=== PATIENT | male | born 1955 | race Caucasian/White ===

== ENCOUNTER 2018-01-13 07:53 | Emergency (ER) | payer BC ==
[2018-01-13] MEDS ORDERED: SODIUM CHLORIDE 0.9% 500 ML 500 ML IV STA (08:19)
[2018-01-13] MEDS ORDERED: DIAZEPAM 5 MG/ML 2 ML INJ IVP STA (08:20)
[2018-01-13] MEDS ORDERED: MECLIZINE 25 MG TAB PO STA (08:20)
--- NOTE | 2018-01-13 08:24 | ED ---
General Adult HPI - General Chief complaint: Weakness Stated complaint: Dizziness Time Seen by Provider: 01/13/18 07:55 Source: patient, RN notes reviewed Mode of arrival: ambulatory Limitations: no limitations - History of Present Illness Initial comments: This is a 62-year-old male who presents emergency Department complaining of waking up at 1:00 in the morning with dizziness. Patient states she got up and he felt off balance when he was walking to the bathroom. Patient states when he woke up this morning again he continued to have the same symptoms. Patient denies any nausea or vomiting. Patient denies any headache patient denies any numbness or focal weakness. Patient states she was able to coordinate everything he just felt off balance. Patient denied any near syncopal or syncopal episode. Patient denies any chest pain difficulty breathing shortness breath per patient but any abdominal pain. Patient denied any back pain. Patient denied any other problems at this time. Patient states he had no recent fever chills. Patient states he does have high blood pressure high cholesterol and a daily drinker. - Related Data Home Medications Medication Instructions Recorded Confirmed Atorvastatin [Lipitor] 40 mg PO DAILY 01/23/16 01/13/18 Mometasone/Formoterol [Dulera 200 2 puff INHALATION RT-BID 01/23/16 01/13/18 Mcg/5 Mcg Inhaler] Verapamil HCl [Verelan] 360 mg PO DAILY 01/23/16 01/13/18 Azithromycin 250 mg PO DAILY 01/13/18 01/13/18 Dicyclomine [Bentyl] 20 mg PO TID 01/13/18 01/13/18 Previous Rx's Medication Instructions Recorded Meclizine [Antivert] 25 mg PO TID #20 tab 01/13/18 Allergies Allergy/AdvReac Type Severity Reaction Status Date / Time No Known Allergies Allergy Verified 01/13/18 09:19 Review of Systems ROS Statement: Those systems with pertinent positive or pertinent negative responses have been documented in the HPI. ROS Other: All systems not noted in ROS Statement are negative. Past Medical History Past Medical History: Asthma, Cancer, Hypertension, Skin Disorder Additional Past Medical History / Comment(s): HX OF PROSTATE CANCER., SKIN TX BY DERMATOLIGIST History of Any Multi-Drug Resistant Organisms: None Reported Past Surgical History: Prostate Surgery Past Anesthesia/Blood Transfusion Reactions: No Reported Reaction Past Psychological History: Depression Smoking Status: Former smoker Past Alcohol Use History: Daily Past Drug Use History: None Reported - Past Family History Mother Family Medical History: No Reported History General Exam - General Exam Comments Initial Comments: GENERAL: Patient is well-developed and well-nourished. Patient is nontoxic and well- hydrated and is in mild distress. ENT: Neck is soft and supple. No significant lymphadenopathy is noted. Oropharynx is clear. Moist mucous membranes. Neck has full range of motion without eliciting any pain. EYES: The sclera were anicteric and conjunctiva were pink and moist. Extraocular movements were intact and pupils were equal round and reactive to light. Eyelids were unremarkable. PULMONARY: Unlabored respirations. Good breath sounds bilaterally. No audible rales rhonchi or wheezing was noted. CARDIOVASCULAR: There is a regular rate and rhythm without any murmurs gallops or rubs. ABDOMEN: Soft and nontender with normal bowel sounds. No palpable organomegaly was noted. There is no palpable pulsatile mass. SKIN: Skin is clear with no lesions or rashes and otherwise unremarkable. NEUROLOGIC: Patient is alert and oriented x3. Cranial nerves II through XII are grossly intact. Motor and sensory are also intact. Normal speech, volume and content. Symmetrical smile. Cerebellar exam grossly intact. When I sat the patient up in bed he stated that made his dizziness worse. MUSCULOSKELETAL: Normal extremities with adequate strength and full range of motion. No lower extremity swelling or edema. No calf tenderness. LYMPHATICS: No significant lymphadenopathy is noted PSYCHIATRIC: Normal psychiatric evaluation. Limitations: no limitations Course Vital Signs 01/13/18 01/13/18 07:54 09:17 Temperature 98.1 F 98.2 F Pulse Rate 93 78 Respiratory 20 18 Rate Blood Pressure 155/91 140/92 O2 Sat by Pulse 99 96 Oximetry Medical Decision Making - Medical Decision Making EKG shows sinus rhythm with occasional PVC at 80 bpm NH interval is 154 QRS is 98 QT interval 410 QTC is 472 per patient's EKG shows no ST segment elevation CT of the brain shows no acute abnormality. Chest x-ray shows no acute abnormality. Patient states the vertigo is improved but it had not completely resolved. Patient was able to ambulate without falling over patient was not nauseated. Patient denies any headache patient denies any numbness or weakness at this time and he felt comfortable going home I we'll discharge patient home on some Antivert. - Lab Data Result diagrams: 01/13/18 08:22 01/13/18 08:20 Lab Results 01/13/18 01/13/18 01/13/18 Range/Units 08:20 08:22 08:22 WBC 7.7 (3.8-10.6) k/uL RBC 4.48 (4.30-5.90) m/uL Hgb 15.5 (13.0-17.5) gm/dL Hct 46.0 (39.0-53.0) % MCV 102.8 H (80.0-100.0) fL MCH 34.6 (25.0-35.0) pg MCHC 33.6 (31.0-37.0) g/dL RDW 13.1 (11.5-15.5) % Plt Count 281 (150-450) k/uL Neutrophils % 75 % Lymphocytes % 15 % Monocytes % 5 % Eosinophils % 2 % Basophils % 0 % Neutrophils # 5.8 (1.3-7.7) k/uL Lymphocytes # 1.2 (1.0-4.8) k/uL Monocytes # 0.4 (0-1.0) k/uL Eosinophils # 0.2 (0-0.7) k/uL Basophils # 0.0 (0-0.2) k/uL Macrocytosis Slight PT 9.9 (9.0-12.0) sec INR 0.9 (<1.2) APTT 22.5 (22.0-30.0) sec Sodium 141 (137-145) mmol/L Potassium 4.1 (3.5-5.1) mmol/L Chloride 108 H (98-107) mmol/L Carbon Dioxide 24 (22-30) mmol/L Anion Gap 9 mmol/L BUN 12 (9-20) mg/dL Creatinine 0.85 (0.66-1.25) mg/dL Est GFR (CKD-EPI)AfAm >90 (>60 ml/min/1.73 sqM) Est GFR (CKD-EPI)NonAf >90 (>60 ml/min/1.73 sqM) Glucose 136 H (74-99) mg/dL Calcium 9.5 (8.4-10.2) mg/dL Magnesium 1.8 (1.6-2.3) mg/dL Total Bilirubin 0.9 (0.2-1.3) mg/dL AST 34 (17-59) U/L ALT 42 (21-72) U/L Alkaline Phosphatase 62 (38-126) U/L Total Creatine Kinase (55-170) U/L CK-MB (CK-2) (0.0-2.4) ng/mL CK-MB (CK-2) Rel Index Troponin I (0.000-0.034) ng/mL Total Protein 6.9 (6.3-8.2) g/dL Albumin 4.1 (3.5-5.0) g/dL Serum Alcohol <10 mg/dL 01/13/18 Range/Units 08:30 WBC (3.8-10.6) k/uL RBC (4.30-5.90) m/uL Hgb (13.0-17.5) gm/dL Hct (39.0-53.0) % MCV (80.0-100.0) fL MCH (25.0-35.0) pg MCHC (31.0-37.0) g/dL RDW (11.5-15.5) % Plt Count (150-450) k/uL Neutrophils % % Lymphocytes % % Monocytes % % Eosinophils % % Basophils % % Neutrophils # (1.3-7.7) k/uL Lymphocytes # (1.0-4.8) k/uL Monocytes # (0-1.0) k/uL Eosinophils # (0-0.7) k/uL Basophils # (0-0.2) k/uL Macrocytosis PT (9.0-12.0) sec INR (<1.2) APTT (22.0-30.0) sec Sodium (137-145) mmol/L Potassium (3.5-5.1) mmol/L Chloride (98-107) mmol/L Carbon Dioxide (22-30) mmol/L Anion Gap mmol/L BUN (9-20) mg/dL Creatinine (0.66-1.25) mg/dL Est GFR (CKD-EPI)AfAm (>60 ml/min/1.73 sqM) Est GFR (CKD-EPI)NonAf (>60 ml/min/1.73 sqM) Glucose (74-99) mg/dL Calcium (8.4-10.2) mg/dL Magnesium (1.6-2.3) mg/dL Total Bilirubin (0.2-1.3) mg/dL AST (17-59) U/L ALT (21-72) U/L Alkaline Phosphatase (38-126) U/L Total Creatine Kinase 97 (55-170) U/L CK-MB (CK-2) 1.3 (0.0-2.4) ng/mL CK-MB (CK-2) Rel Index 1.3 Troponin I <0.012 (0.000-0.034) ng/mL Total Protein (6.3-8.2) g/dL Albumin (3.5-5.0) g/dL Serum Alcohol mg/dL Disposition Clinical Impression: Vertigo Disposition: HOME SELF-CARE Condition: Good Instructions: Vertigo (ED) Prescriptions: Meclizine [Antivert] 25 mg PO TID #20 tab Is patient prescribed a controlled substance at d/c from ED?: No Referrals: Edgar Holley MD [Primary Care Provider] - 1-2 days Time of Disposition: 10:58
[2018-01-13 08:41] LABS: Basophils % (A) 0 %; Eosinophils # (A) 0.2 k/uL (0-0.7); Eosinophils % (A) 2 %; HGB 15.5 gm/dL (13.0-17.5); Lymphocytes # (A) 1.2 k/uL (1.0-4.8); Lymphocytes % (A) 15 %; MCH 34.6 pg (25.0-35.0); MCHC 33.6 g/dL (31.0-37.0); MCV 102.8 fL (80.0-100.0); Macrocytosis Slight; Mean Platelet Volume 6.5; Monocytes # (A) 0.4 k/uL (0-1.0); Monocytes % (A) 5 %; Neutrophils # (A) 5.8 k/uL (1.3-7.7); Neutrophils % (A) 75 %; Platelet Count 281 k/uL (150-450); RBC 4.48 m/uL (4.30-5.90); RDW 13.1 % (11.5-15.5); WBC 7.7 k/uL (3.8-10.6)
[2018-01-13 08:49] LABS: ALT 42 U/L (21-72); AST 34 U/L (17-59); Albumin 4.1 g/dL (3.5-5.0); Alcohol <10 mg/dL; Alkaline Phosphatase 62 U/L (38-126); Anion Gap 9 mmol/L; Blood Urea Nitrogen 12 mg/dL (9-20); Calcium 9.5 mg/dL (8.4-10.2); Carbon Dioxide 24 mmol/L (22-30); Chloride 108 mmol/L (98-107); Glucose 136 mg/dL (74-99); Magnesium 1.8 mg/dL (1.6-2.3); Potassium 4.1 mmol/L (3.5-5.1); Sodium 141 mmol/L (137-145); Total Bilirubin 0.9 mg/dL (0.2-1.3); Total Protein 6.9 g/dL (6.3-8.2)
--- NOTE | 2018-01-13 08:56 | XR ---
EXAMINATION TYPE: XR chest 2V DATE OF EXAM: 01/13/2018 COMPARISON: 11/08/2014 TECHNIQUE: PA and lateral views submitted. HISTORY: Chest pain FINDINGS: The lungs are clear and there is no pneumothorax, pleural effusion, or focal pneumonia. Subsegmenta l changes at the lung bases. There is biapical pleural thickening. No overt failure. Hypertrophic and degenerative change of the spine. IMPRESSION: 1. No acute process.
[2018-01-13 09:04] LABS: INR 0.9 (<1.2); Partial Thromboplastin Time 22.5 sec (22.0-30.0); Prothrombin Time 9.9 sec (9.0-12.0)
--- NOTE | 2018-01-13 09:10 | CT ---
EXAMINATION TYPE: CT brain wo con DATE OF EXAM: 01/13/2018 COMPARISON: None INDICATION: Dizziness and weakness DLP: 1099.4 mGycm, Automated exposure control for dose reduction was used. CONTRAST: None CT of the brain is performed utilizing 3 mm thick sections through the posterior fossa and 3 mm thick sections through the remaining calvarium. Study is performed within 24 hours of arrival to the hosp [facility]. No abnormal hyperdensity is present to suggest an acute intracranial hemorrhage. No mass lesion is evident. No acute infarcts are evident. Ventricles and sulci are appropriate for the patient age. Mucosal thickening is through the bilateral maxillary sinuses. There has been prior uncinectomies. La minectomies been performed. There is a retention cyst within a residual right ethmoid air cell. Left septal deviation is present. Galilea paranasal sinuses and mastoid air cells within the [id number] a re clear. IMPRESSIONS: 1. No acute intracranial process. 2. Mucosal thickening within the postsurgical sinuses discussed above.
[2018-01-13 09:18] VITALS: RESP 18; TEMP 98.2
[2018-01-13 09:20] LABS: Creatine Kinase 97 U/L (55-170)
[2018-01-13 09:32] LABS: Creatine Kinase MB 1.3 ng/mL (0.0-2.4); Troponin I <0.012 ng/mL (0.000-0.034)
[2018-01-13 11:38] VITALS: BP 160/88; PULSE 89
== END 2018-01-13 11:20 | disposition home or self-care (01) ==
LOC: EC 07:53
DX: R42 Dizziness and giddiness (principal); R53.1 Weakness; J45.909 Unspecified asthma, uncomplicated; I10 Essential (primary) hypertension; Z79.899 Other long term (current) drug therapy; Z85.46 Personal history of malignant neoplasm of prostate; Z87.891 Personal history of nicotine dependence
CPT/HCPCS: 36415; 93005; 80053; 82550; 82553; 83735; 84484; 85025; 85610; 85730; 80320; 71046; 70450; 99285; 96374; J3360

== ENCOUNTER → 2018-05-26 | Outpatient (CLI) | payer MEDICAID ==
--- NOTE | 2018-05-26 13:36 | US ---
EXAMINATION TYPE: US venous doppler duplex LE RT DATE OF EXAM: 05/26/2018 1:10 PM COMPARISON: NONE CLINICAL HISTORY: M79.89 OTHER SPECIFIED SOFT TISSUE DISORDER. Pt states right leg swelling x 3 days SIDE PERFORMED: Right TECHNIQUE: The lower extremity deep venous system is examined utilizing real time linear array sonog melissa with graded compression, doppler sonography and color-flow sonography. VESSELS IMAGED: External Iliac Vein (EIV) Common Femoral Vein Deep Femoral Vein Greater Saphenous Vein * Femoral Vein Popliteal Vein Small Saphenous Vein * Proximal Calf Veins (* superficial vessels) Right Leg: Negative for DVT Attempted to call Dr's office at time of exam, no answer IMPRESSION: 1. Right lower extremity ultrasound negative for deep venous thrombosis.
== END | disposition home or self-care (01) ==
LOC: RADUSWWP 12:41
PROVIDERS: ATTEND Internal Medicine
DX: M79.89 Other specified soft tissue disorders (principal)

== ENCOUNTER → 2018-07-18 | Outpatient (CLI) | payer MEDICAID ==
--- NOTE | 2018-07-18 19:56 | ECHOF ---
Referral Reason:I51.7 Cardiomegaly MEASUREMENTS -------- HEIGHT: 190.5 cm WEIGHT: 113.4 kg BP: 145/85 IVSd: 1.4 cm (0.6 - 1.1) LVIDd: 4.5 cm (3.9 - 5.3) LVPWd: 1.3 cm (0.6 - 1.1) IVSs: 2.2 cm LVIDs: 3.1 cm LVPWs: 2.0 cm LA Diam: 3.5 cm (2.7 - 3.8) RVIDd: 3.5 cm (< 3.3) Ao Diam: 3.9 cm (2.0 - 3.7) AV Cusp: 2.8 cm (1.5 - 2.6) MV E Merlin: 0.63 m/s MV DecT: 228 ms MV A Merlin: 0.91 m/s MV E/A Ratio: 0.68 FINDINGS -------- Sinus rhythm. This was a technically adequate study. The left ventricular size is normal. There is moderate concentric left ventricular hypertrophy. O verall left ventricular systolic function is normal with, an EF between 60 - 65 %. The right ventricle is mildly enlarged. The left atrial size is normal. The right atrium is normal in size. There is mild aortic valve sclerosis. The mitral valve leaflets are mildly thickened. Mild mitral annular calcification present. The tricuspid valve appears structurally normal. The pulmonic valve was not well visualized. The aortic root is dilated measuring 3.9cm. IVC Not well visulized. There is no pericardial effusion. CONCLUSIONS -------- 1. Sinus rhythm. 2. This was a technically adequate study. 3. The left ventricular size is normal. 4. There is moderate concentric left ventricular hypertrophy. 5. Overall left ventricular systolic function is normal with, an EF between 60 - 65 %. 6. The right ventricle is mildly enlarged. 7. The left atrial size is normal. 8. The right atrium is normal in size. 9. There is mild aortic valve sclerosis. 10. The mitral valve leaflets are mildly thickened. 11. Mild mitral annular calcification present. 12. The tricuspid valve appears structurally normal. 13. The pulmonic valve was not well visualized. 14. The aortic root is dilated measuring 3.9cm. 15. IVC Not well visulized. 16. There is no pericardial effusion. TYPE DISK QUALITY CONTROL SUPERVISOR: Kayley Clifton RDCS
== END | disposition home or self-care (01) ==
LOC: RADECHMAIN 12:43
PROVIDERS: ATTEND Internal Medicine
DX: I51.7 Cardiomegaly (principal); I35.8 Other nonrheumatic aortic valve disorders; I34.8 Other nonrheumatic mitral valve disorders
CPT/HCPCS: 93306

== ENCOUNTER → 2018-11-28 | Outpatient (CLI) | payer MEDICARE ==
[2018-11-28 16:26] LABS: African American GFR (CKD) >90 (>60 ml/min/1.73 sqM); Blood Urea Nitrogen 13 mg/dL (9-20)
--- NOTE | 2018-11-28 21:47 | CT ---
EXAMINATION TYPE: CT soft tissue neck w con DATE OF EXAM: 11/28/2018 HISTORY: Left parotid mass. COMPARISON: CT brain January 13, 2018 CT DLP: 388 mGycm. Automated Exposure Control for Dose Reduction was Utilized. TECHNIQUE: CT scan of the neck is performed with IV Contrast, patient injected with 100 mL of Isovue M300, axial images are obtained, coronal and sagittal reformatted images are reviewed. FINDINGS: Airway: No gross abnormality seen. Parotid/submandibular glands: There is well-defined oval solid mass anteriorly in the superficial upp er aspect left parotid gland. This mass measures 2.1 x 2.6 cm axial image 63 in retrospect was presen t on prior CT without significant interval change in size. There is heterogeneous postcontrast enhanc ement most prominent along the anterior aspect of lesion where there is more nodular enhancement pres ent. Carotid/Vascular Structures: Bovine type arch is present which is normal variant. Mild peripheral brooke cified plaque right carotid bulb. Tortuous course to the proximal internal carotid artery on the righ t. Osseous Structures: Advanced spurring. Cervical spine centered C4 level with straightening of cervica l spine. Posterior spur disc complex effaces the anterior thecal sac at C6-C7 level. Other: No definitive greater than 1 cm neck lymph nodes. Some prominent but subcentimeter benign-appe aring lymph nodes are scattered throughout the neck bilaterally. IMPRESSION: Corresponding to palpable abnormality there is heterogeneous enhancing well-defined left parotid mass anterior upper superficial aspect worrisome for neoplasm. Favor benign etiology. Imaging guided sampling for tissue analysis can be performed if desired.
== END ==
LOC: RADCTMAIN 15:53
PROVIDERS: ATTEND Otolaryngology
DX: R93.89 Abnormal findings on diagnostic imaging of other specified body structures (principal)
CPT/HCPCS: 82565; 84520; 70491; 36415; Q9967

== ENCOUNTER → 2019-07-30 | Outpatient (CLI) | payer MEDICARE ==
--- NOTE | 2019-07-30 08:50 | US ---
EXAMINATION TYPE: US duplex aorta DATE OF EXAM: 07/30/2019 COMPARISON: NONE CLINICAL HISTORY: Z13.6 encounter for screening for cardiovascular. Medicare screening. EXAM MEASUREMENTS: Abdominal Aorta: Proximal: not seen due to bowel gas. Mid: 2.4 x 2.7 cm Distal: 2.1 x 2.2 cm Bifurcation: not seen due to bowel gas Limited due to bowel gas and body habitus. Visualized portions wnl. Bifurcation not successfully imag ed towards end of study. IMPRESSION: Visualized portion of mid to distal abdominal aorta show no AAA but suboptimal study note d.
== END | disposition home or self-care (01) ==
LOC: RADUSWWP 08:30
PROVIDERS: ATTEND Physician Assistant
DX: Z13.6 Encounter for screening for cardiovascular disorders (principal)
CPT/HCPCS: 93979

== ENCOUNTER → 2019-10-25 | Outpatient (CLI) | payer MEDICARE ==
[2019-10-25 15:39] LABS: Basophils % (A) 0 %; Eosinophils # (A) 0.2 k/uL (0-0.7); Eosinophils % (A) 1 %; HCT 47.5 % (39.0-53.0); HGB 15.4 gm/dL (13.0-17.5); Lymphocytes # (A) 1.4 k/uL (1.0-4.8); Lymphocytes % (A) 13 %; MCH 32.5 pg (25.0-35.0); MCHC 32.3 g/dL (31.0-37.0); MCV 100.5 fL (80.0-100.0); Mean Platelet Volume 6.6; Monocytes # (A) 0.5 k/uL (0-1.0); Monocytes % (A) 5 %; Neutrophils # (A) 8.7 k/uL (1.3-7.7); Neutrophils % (A) 80 %; Platelet Count 320 k/uL (150-450); RBC 4.73 m/uL (4.30-5.90); RDW 12.6 % (11.5-15.5); WBC 10.9 k/uL (3.8-10.6)
[2019-10-25 16:03] LABS: Total Eosinophil Count 141 #EOS/uL (150-300)
[2019-10-26 04:00] LABS: Cat Epith & Dander IgE 0.38 kU/L; Dermato. farinae IgE <0.10 kU/L; Dog Dander IgE <0.10 kU/L
[2019-10-26 04:01] LABS: Cockroach IgE <0.10 kU/L
[2019-10-26 04:02] LABS: Aspergillus fumagatus IgE <0.10 kU/L; Cladosporian herbarum IgE <0.10 kU/L
[2019-10-26 04:03] LABS: Alternaria alternata IgE 0.13 kU/L; Birch IgE <0.10 kU/L; Maple (Box Elder) IgE <0.10 kU/L
[2019-10-26 04:04] LABS: Elm IgE <0.10 kU/L; Oak IgE <0.10 kU/L; Ragweed,Common IgE <0.10 kU/L; Red Top (Bentgrass) IgE <0.10 kU/L
== END | disposition home or self-care (01) ==
LOC: LABWHC1 14:44
PROVIDERS: ATTEND Internal Medicine
DX: J45.50 Severe persistent asthma, uncomplicated (principal)
CPT/HCPCS: 36415; 82785; 85008; 85025; 86003

== ENCOUNTER 2021-01-21 13:35 | Emergency (ER) | payer MEDICARE ==
[2021-01-21 13:44] VITALS: BP 133/87; PULSE 131; TEMP 99
[2021-01-21 14:21] VITALS: RESP 18
--- NOTE | 2021-01-21 14:57 | XR ---
EXAMINATION TYPE: XR chest 2V DATE OF EXAM: 01/21/2021 COMPARISON: Chest x-ray 01/13/2018, 10/25/2019 HISTORY: Upper respiratory infection TECHNIQUE: Frontal and lateral views of the chest are obtained. FINDINGS: There is no focal air space opacity, pleural effusion, or pneumothorax seen. The cardiac silhouette size is within normal limits. Right hemidiaphragm remains elevated. There is biapical pleu ral thickening. The osseous structures are stable. IMPRESSION: No acute cardiopulmonary process.
--- NOTE | 2021-01-21 15:12 | ED ---
URI HPI - General Chief Complaint: Upper Respiratory Infection Stated Complaint: head & chest congestion, cough Time Seen by Provider: 01/21/21 14:10 Source: patient, RN notes reviewed Mode of arrival: ambulatory Limitations: no limitations - History of Present Illness Initial Comments: Patient is a 65-year-old male that presents to the emergency department complaining of upper respiratory tract symptoms including cough and sinus congestion and sinus headache. He notes that he is fully vaccinated and has been booster shot. He notes that he also a Covid back in May. He notes that he thinks he might have Covid again. He came to the emergency room to get evaluated. Patient was otherwise well-appearing. He denied any chest pain headache nausea vomiting diarrhea constipation fever fatigue chills. - Related Data Home Medications Medication Instructions Recorded Confirmed Atorvastatin [Lipitor] 40 mg PO DAILY 01/23/16 01/13/18 Mometasone/Formoterol [Dulera 200 2 puff INHALATION RT-BID 01/23/16 01/13/18 Mcg/5 Mcg Inhaler] Verapamil HCl [Verelan] 360 mg PO DAILY 01/23/16 01/13/18 Azithromycin 250 mg PO DAILY 01/13/18 01/13/18 Dicyclomine [Bentyl] 20 mg PO TID 01/13/18 01/13/18 Previous Rx's Medication Instructions Recorded Meclizine [Antivert] 25 mg PO TID #20 tab 01/13/18 Allergies Allergy/AdvReac Type Severity Reaction Status Date / Time No Known Allergies Allergy Verified 01/21/21 13:41 Review of Systems ROS Statement: Those systems with pertinent positive or pertinent negative responses have been documented in the HPI. ROS Other: All systems not noted in ROS Statement are negative. Past Medical History Past Medical History: Asthma, Cancer, Hypertension, Skin Disorder Additional Past Medical History / Comment(s): HX OF PROSTATE CANCER., SKIN TX BY DERMATOLIGIST History of Any Multi-Drug Resistant Organisms: None Reported Past Surgical History: Prostate Surgery Past Anesthesia/Blood Transfusion Reactions: No Reported Reaction Past Psychological History: Depression Smoking Status: Never smoker Past Alcohol Use History: Daily Past Drug Use History: None Reported - Past Family History Mother Family Medical History: No Reported History General Exam Limitations: no limitations General appearance: alert, in no apparent distress, obese Head exam: Present: atraumatic, normocephalic, normal inspection Eye exam: Present: normal appearance, PERRL, EOMI. Absent: scleral icterus, conjunctival injection, periorbital swelling ENT exam: Present: normal exam, mucous membranes moist Neck exam: Present: normal inspection Respiratory exam: Present: normal lung sounds bilaterally. Absent: respiratory distress, wheezes, rales, rhonchi, stridor Cardiovascular Exam: Present: regular rate, normal rhythm, normal heart sounds. Absent: systolic murmur, diastolic murmur, rubs, gallop, clicks Extremities exam: Present: normal inspection, full ROM, normal capillary refill. Absent: tenderness, pedal edema, joint swelling, calf tenderness Back exam: Present: normal inspection Neurological exam: Present: alert, oriented X3 Psychiatric exam: Present: normal affect, normal mood Skin exam: Present: warm, dry, intact, normal color. Absent: rash Course Vital Signs 01/21/21 01/21/21 13:41 14:17 Temperature 99.0 F Pulse Rate 131 H Respiratory 20 18 Rate Blood Pressure 133/87 O2 Sat by Pulse 96 Oximetry Medical Decision Making - Medical Decision Making 65-year-old male complaining of upper respiratory tract symptoms for the past 5 days. Covid test, chest x-ray ordered. Covid test negative Chest x-ray shows no acute cardio pulmonary process. Case discussed with Dr. Finn outpatient discharge home with follow-up to primary care. - Lab Data Lab Results 01/21/21 Range/Units 13:49 Coronavirus (PCR) Not Detected (Not Detectd) - Radiology Data Radiology results: report reviewed, image reviewed Chest x-ray: No acute cardiopulmonary process. Disposition Clinical Impression: Acute upper respiratory infection Disposition: HOME SELF-CARE Condition: Stable Instructions (If sedation given, give patient instructions): Upper Respiratory Infection (ED) Additional Instructions: Please return to the Emergency Department if symptoms worsen or any other concerns. Is patient prescribed a controlled substance at d/c from ED?: No Referrals: Gisela Burks MD [Primary Care Provider] - 1-2 days Time of Disposition: 15:12
== END 2021-01-21 15:23 | disposition home or self-care (01) ==
LOC: EC 13:35
DX: J06.9 Acute upper respiratory infection, unspecified (principal); J45.909 Unspecified asthma, uncomplicated; I10 Essential (primary) hypertension; F32.A Depression, unspecified; Z20.822 Contact with and (suspected) exposure to COVID-19; Z85.46 Personal history of malignant neoplasm of prostate
CPT/HCPCS: 71046; 87635; 99284

== ENCOUNTER 2021-04-05 17:47 | Inpatient (IN) | payer MEDICARE ==
[2021-04-05] MEDS ORDERED: HYDROmorphone 0.5 MG/0.5 ML SYRINGE IVP STA (17:59)
[2021-04-05] MEDS ORDERED: SODIUM CHLORIDE 0.9% 500 ML 500 ML IV STA (17:59)
--- NOTE | 2021-04-05 18:05 | ED ---
General Adult HPI - General Chief complaint: Abdominal Pain Stated complaint: Abd pain Time Seen by Provider: 04/05/21 17:55 Source: patient, family, RN notes reviewed, old records reviewed Mode of arrival: ambulatory Limitations: no limitations - History of Present Illness Initial comments: Pleasant 65-year-old male presents with complaints of abdominal pain since 8:00 this morning with frequent belching. He describes the abdominal pain as sharp and stabbing on both sides, 8 out of 10. He denies any fevers. He did have a bowel movement today that was diarrhea. Denies any hematochezia or hematemesis. He states he seen his primary care doctor a couple of days ago for upper respiratory type symptoms and was prescribed an antibiotic. He does have a history of asthma, hypertension and prostate -: hour(s) (10) Location: abdomen Radiation: non-radiation Severity scale (1-10): 8 Quality: stabbing Consistency: constant Improves with: none Worsens with: none Associated Symptoms: denies other symptoms Treatments Prior to Arrival: other (Gas-X) - Related Data Home Medications Medication Instructions Recorded Confirmed Atorvastatin [Lipitor] 40 mg PO HS 01/23/16 04/05/21 Verapamil HCl [Verelan] 360 mg PO DAILY 01/23/16 04/05/21 Albuterol Sulfate [Ventolin HFA] 2 puff INHALATION RT-Q6H PRN 04/05/21 04/05/21 Azithromycin [Zithromax Tri-Edin (3 See Taper PO DAILY 04/05/21 04/05/21 tabs)] Fluticasone/Umeclidin/Vilanter 1 puff INHALATION RT-DAILY 04/05/21 04/05/21 [Trelegy Ellipta 200-62.5-25] predniSONE 10 mg PO DIRECTED 04/05/21 04/05/21 Allergies Allergy/AdvReac Type Severity Reaction Status Date / Time No Known Allergies Allergy Verified 04/05/21 18:39 Review of Systems ROS Statement: Those systems with pertinent positive or pertinent negative responses have been documented in the HPI. ROS Other: All systems not noted in ROS Statement are negative. Past Medical History Past Medical History: Asthma, Cancer, Hypertension, Skin Disorder Additional Past Medical History / Comment(s): HX OF PROSTATE CANCER., SKIN TX BY DERMATOLIGIST History of Any Multi-Drug Resistant Organisms: None Reported Past Surgical History: Prostate Surgery Past Anesthesia/Blood Transfusion Reactions: No Reported Reaction Past Psychological History: Depression Smoking Status: Never smoker Past Alcohol Use History: Daily Past Drug Use History: None Reported - Past Family History Mother Family Medical History: No Reported History General Exam Limitations: no limitations General appearance: alert, in no apparent distress Head exam: Present: atraumatic, normocephalic, normal inspection Eye exam: Present: normal appearance. Absent: scleral icterus, conjunctival injection, periorbital swelling, periorbital tenderness ENT exam: Present: normal oropharynx, mucous membranes moist Respiratory exam: Present: normal lung sounds bilaterally. Absent: respiratory distress, wheezes, rales, rhonchi, stridor, chest wall tenderness, accessory muscle use, decreased breath sounds Cardiovascular Exam: Present: tachycardia GI/Abdominal exam: Present: distended, tenderness (Diffusely). Absent: guarding, rebound, rigid Back exam: Present: normal inspection, full ROM. Absent: tenderness, CVA tenderness (R), CVA tenderness (L) Neurological exam: Present: alert, oriented X3, normal gait Psychiatric exam: Present: normal affect, normal mood Skin exam: Present: warm, dry, intact, normal color. Absent: cyanosis, diaphoretic, petechiae, pallor Course Vital Signs 04/05/21 04/05/21 04/05/21 17:48 18:50 21:00 Temperature 97.8 F Pulse Rate 105 H 83 Respiratory 20 16 Rate Blood Pressure 174/89 155/87 191/113 O2 Sat by Pulse 95 95 Oximetry 04/06/21 04/06/21 00:00 01:19 Temperature Pulse Rate 89 84 Respiratory 18 18 Rate Blood Pressure 133/70 134/66 O2 Sat by Pulse 96 96 Oximetry - Reevaluation(s) Reevaluation #1: 04/05/21 19:20 Patient states he is not feeling any better after fluids and pain medication. There is evidence of leukocytosis, CT ordered to rule out diverticulitis Time: 19:20 EKG Findings - EKG Results: EKG: sinus rhythm (Ventricular rate 89, DE interval 0.162, QRS 0.106, QTC 0.450) Medical Decision Making - Medical Decision Making Well-appearing 65-year-old male presents to the emergency room with abdominal pain and distention today. He denies any hematochezia or hematemesis. He denies any fevers. Patient does admit to drinking 2-3 drinks of bourbon or vodka daily. X-ray of the abdomen shows no intestinal obstruction or pneumoperitoneum. Fecal pattern is normal. White blood cell count is 16.7 with neutrophil count. Leukocytosis with a left shift, lactic acid is 2.5 patient was started on IV fluids given IV fluid bolus of 1 [place] [address] with an amylase of 1480. CT abdomen shows retroperitoneal fat stranding consistent with acute pancreatitis. There is fatty infiltration of the liver. There is no evidence of free air. Vital signs are stable. Patient will be admitted to the hospital with acute pancreatitis. - Lab Data Result diagrams: 04/05/21 18:29 04/05/21 18:29 Lab Results 04/05/21 04/05/21 04/05/21 Range/Units 18:29 18:29 18:29 WBC 16.7 H (3.8-10.6) k/uL RBC 4.45 (4.30-5.90) m/uL Hgb 15.9 (13.0-17.5) gm/dL Hct 47.6 (39.0-53.0) % MCV 107.0 H (80.0-100.0) fL MCH 35.8 H (25.0-35.0) pg MCHC 33.4 (31.0-37.0) g/dL RDW 13.6 (11.5-15.5) % Plt Count 326 (150-450) k/uL MPV 7.1 Neutrophils % 94 % Lymphocytes % 2 % Monocytes % 2 % Eosinophils % 1 % Basophils % 0 % Neutrophils # 15.7 H (1.3-7.7) k/uL Lymphocytes # 0.4 L (1.0-4.8) k/uL Monocytes # 0.4 (0-1.0) k/uL Eosinophils # 0.1 (0-0.7) k/uL Basophils # 0.0 (0-0.2) k/uL Macrocytosis Moderate PT 10.2 (9.0-12.0) sec INR 0.9 (<1.2) APTT 21.2 L (22.0-30.0) sec Sodium 136 L (137-145) mmol/L Potassium 3.9 (3.5-5.1) mmol/L Chloride 100 (98-107) mmol/L Carbon Dioxide 26 (22-30) mmol/L Anion Gap 10 mmol/L BUN 13 (9-20) mg/dL Creatinine 0.79 (0.66-1.25) mg/dL Est GFR (CKD-EPI)AfAm >90 (>60 ml/min/1.73 sqM) Est GFR (CKD-EPI)NonAf >90 (>60 ml/min/1.73 sqM) Glucose 255 H (74-99) mg/dL Lactic Ac Sepsis Rflx Plasma Lactic Acid Hector (0.7-2.0) mmol/L Calcium 9.0 (8.4-10.2) mg/dL Total Bilirubin 0.8 (0.2-1.3) mg/dL AST 40 (17-59) U/L ALT 34 (4-49) U/L Alkaline Phosphatase 76 (38-126) U/L Troponin I (0.000-0.034) ng/mL Total Protein 7.3 (6.3-8.2) g/dL Albumin 4.3 (3.5-5.0) g/dL Amylase 1480 H* (30-110) U/L Lipase 60865 H (23-300) U/L 04/05/21 04/05/21 04/05/21 Range/Units 18:29 18:29 19:10 WBC (3.8-10.6) k/uL RBC (4.30-5.90) m/uL Hgb (13.0-17.5) gm/dL Hct (39.0-53.0) % MCV (80.0-100.0) fL MCH (25.0-35.0) pg MCHC (31.0-37.0) g/dL RDW (11.5-15.5) % Plt Count (150-450) k/uL MPV Neutrophils % % Lymphocytes % % Monocytes % % Eosinophils % % Basophils % % Neutrophils # (1.3-7.7) k/uL Lymphocytes # (1.0-4.8) k/uL Monocytes # (0-1.0) k/uL Eosinophils # (0-0.7) k/uL Basophils # (0-0.2) k/uL Macrocytosis PT (9.0-12.0) sec INR (<1.2) APTT (22.0-30.0) sec Sodium (137-145) mmol/L Potassium (3.5-5.1) mmol/L Chloride (98-107) mmol/L Carbon Dioxide (22-30) mmol/L Anion Gap mmol/L BUN (9-20) mg/dL Creatinine (0.66-1.25) mg/dL Est GFR (CKD-EPI)AfAm (>60 ml/min/1.73 sqM) Est GFR (CKD-EPI)NonAf (>60 ml/min/1.73 sqM) Glucose (74-99) mg/dL Lactic Ac Sepsis Rflx Y Plasma Lactic Acid Hector 2.5 H* (0.7-2.0) mmol/L Calcium (8.4-10.2) mg/dL Total Bilirubin (0.2-1.3) mg/dL AST (17-59) U/L ALT (4-49) U/L Alkaline Phosphatase (38-126) U/L Troponin I <0.012 (0.000-0.034) ng/mL Total Protein (6.3-8.2) g/dL Albumin (3.5-5.0) g/dL Amylase (30-110) U/L Lipase (23-300) U/L Disposition Clinical Impression: Pancreatitis Disposition: ADMITTED IP TO THIS [facility] Decision Date: 04/05/21 Decision Time: 20:21
[2021-04-05 18:36] LABS: Basophils % (A) 0 %; Eosinophils # (A) 0.1 k/uL (0-0.7); Eosinophils % (A) 1 %; HCT 47.6 % (39.0-53.0); HGB 15.9 gm/dL (13.0-17.5); Lymphocytes # (A) 0.4 k/uL (1.0-4.8); Lymphocytes % (A) 2 %; MCH 35.8 pg (25.0-35.0); MCHC 33.4 g/dL (31.0-37.0); Macrocytosis Moderate; Mean Platelet Volume 7.1; Monocytes # (A) 0.4 k/uL (0-1.0); Monocytes % (A) 2 %; Neutrophils # (A) 15.7 k/uL (1.3-7.7); Neutrophils % (A) 94 %; Platelet Count 326 k/uL (150-450); RBC 4.45 m/uL (4.30-5.90); RDW 13.6 % (11.5-15.5); WBC 16.7 k/uL (3.8-10.6)
[2021-04-05 18:47] LABS: ALT 34 U/L (4-49); AST 40 U/L (17-59); African American GFR (CKD) >90 (>60 ml/min/1.73 sqM); Albumin 4.3 g/dL (3.5-5.0); Alkaline Phosphatase 76 U/L (38-126); Anion Gap 10 mmol/L; Blood Urea Nitrogen 13 mg/dL (9-20); Carbon Dioxide 26 mmol/L (22-30); Chloride 100 mmol/L (98-107); Glucose 255 mg/dL (74-99); Non-African American GFR(CKD) >90 (>60 ml/min/1.73 sqM); Potassium 3.9 mmol/L (3.5-5.1); Sodium 136 mmol/L (137-145); Total Bilirubin 0.8 mg/dL (0.2-1.3); Total Protein 7.3 g/dL (6.3-8.2)
--- NOTE | 2021-04-05 18:54 | XR ---
EXAMINATION TYPE: XR KUB DATE OF EXAM: 04/05/2021 COMPARISON: NONE HISTORY: Pain TECHNIQUE: 3 views FINDINGS: 3 views upright were obtained. There is no sign of intestinal obstruction or pneumoperitone um. Fecal pattern is normal. Lung bases are clear. There are no pathologic calcifications over the ki dneys. IMPRESSION: Acute abdomen.
[2021-04-05 18:59] LABS: INR 0.9 (<1.2); Partial Thromboplastin Time 21.2 sec (22.0-30.0); Prothrombin Time 10.2 sec (9.0-12.0)
[2021-04-05] MEDS ORDERED: SODIUM CHLORIDE 0.9% 500 ML 500 ML IV ONE (19:17)
[2021-04-05 19:37] LABS: Amylase 1480 U/L (30-110); Lipase 14561 U/L (23-300)
--- NOTE | 2021-04-05 20:05 | CT ---
EXAMINATION TYPE: CT abdomen pelvis w con DATE OF EXAM: 04/05/2021 COMPARISON: None HISTORY: Generalized abdominal pain. CT DLP: 2227.3 mGycm Automated exposure control for dose reduction was used. CONTRAST: Performed with IV Contrast, patient injected with 100ml mL of Isovue 300. Images obtained from the diaphragm to the floor the pelvis with IV contrast. The lung bases are clear of consolidation. There is minimal subsegmental atelectasis left lung base. Heart size is fairly normal. There is no pericardial effusion. There is fatty infiltration of the franck er. Spleen is intact. Stomach is intact. There is fat stranding in the retroperitoneum around the body and tail of the pancreas. There is some fluid in the left anterior pararenal space. No pancreatic mass seen. There is no adrenal mass. Kidneys show satisfactory contrast opacification. There is 2 mm calculus la teral right kidney. There is no hydronephrosis. Ureters are not dilated. There is no retroperitoneal adenopathy. Bladder distends smoothly. There is no inguinal hernia. There is no free fluid in the pel vis. Appendix appears normal. There is no ascites or free air. There is no bowel obstruction. Lumbar vertebrae have normal alignment. There is degenerative disc space narrowing at L4-5 and L5-S1. There is no compression fracture. Bony pelvis is intact. The hip joints are intact. IMPRESSION: Retroperitoneal fat stranding and fluid consistent with acute pancreatitis. Fatty infiltration of the liver.
[2021-04-05] MEDS ORDERED: ONDANSETRON 4 MG/2 ML VIAL IVP PRN (20:21)
[2021-04-05] MEDS ORDERED: NALOXONE 0.4 MG/ML 1 ML VIAL IV PRN (20:21)
[2021-04-05] MEDS ORDERED: ACETAMINOPHEN TAB 325 MG TAB PO PRN (20:21)
[2021-04-05] MEDS ORDERED: ALBUTEROL NEBULIZED 2.5 MG/3 ML INHALATION PRN (20:23)
[2021-04-05] MEDS: HYDROmorphone 0.5 MG/0.5 ML SYRINGE IVP PRN (21:28)
[2021-04-05] MEDS: SODIUM CHLORIDE 0.9% 1,000 ML IV SCH (21:29)
[2021-04-05] MEDS ORDERED: VERAPAMIL SR 180 MG TABLET.ER PO STA (21:32)
[2021-04-06] MEDS: predniSONE 10 MG TAB PO SCH ×2 (00:31→21:17)
[2021-04-06] MEDS: HYDROmorphone 0.5 MG/0.5 ML SYRINGE IVP PRN ×8 (00:33→23:37)
--- NOTE | 2021-04-06 00:43 | P.HPIM ---
History of Present Illness H&P Date: 04/05/21 The patient is a 65-year-old male with a PMH of alcohol abuse, asthma, and hyperlipidemia who presents to the emergency room with complaints of abdominal pain. The patient reports that he woke up this morning with 8 out of 10 epigastric abdominal pain with nausea and vomiting. Reports no blood or bile in the vomitus. Reports heavy alcohol use for the past several decades and currently drinks a fifth of vodka daily. Last drink was last night at 9 PM. Denied any prior history of such abdominal pain. Reports that the pain radiates throughout the abdomen with no alleviating or exacerbating features. Denied fever, diarrhea, cough, chest pain, shortness of breath, urinary complaints. Patient denied history of alcohol withdrawal and delirium tremens. Denied ever being hospitalized for his drinking. CT abdomen and pelvis was remarkable for acute pancreatitis with fatty infiltration of the liver with EKG showing sinus rhythm at 89 bpm. Laboratory evaluation was remarkable for WBC count of 16.7, lactic acid 2.5, lipase 14,561, MCV 107, and glucose 255. Review of systems: Pertinent positives and negatives as discussed in HPI, a complete review of systems was performed and all other systems are negative. Physical examination: General: non toxic, no distress, appears at stated age, normal weight Derm: no unusual rashes/lesions no unusual ecchymoses, warm, dry Head: atraumatic, normocephalic, symmetric Eyes: EOMI, no lid lag, anicteric sclera, pupils equal round reactive to light ENT: Nose and ears atraumatic, no thrush, no pharyngeal erythema Neck: No thyromegaly, no cervical lymphadenopathy, trachea midline, supple Mouth: no lip lesion, mucus membranes moist Cardiovascular: S1S2 reg, no murmur, positive posterior tibial pulse bilateral, no edema, capillary refill less than 2 seconds Lungs: CTA bilateral, no rhonchi, no rales , no accessory muscle use Abdominal: Distended, epigastric abdominal tenderness, no guarding, no appreciable organomegaly, normal bowel sounds Ext: no gross muscle atrophy, muscle strength 5 out of 5 in all 4 extremities grossly, no contractures, Neuro: CN II-XI grossly intact, light touch intact all 4 extremities, mild outstretched hand tremor and tongue fasciculations noted Psych: Alert, oriented, appropriate affect Assessment/plan Acute pancreatitis in active alcoholic -Continue IV fluids -Nothing by mouth -Pain control -Antiemetics -Strongly advised on importance of cessation from alcohol use -CIWA protocol Lactic acidosis -IV fluids and monitor for resolution Macrocytosis -Check anemia panel Hyperglycemia -Check A1c Chronic conditions: Asthma, hyperlipidemia -Continue with home meds DVT prophylaxis -Heparin subcu The patient is admitted with an anticipated greater than 2 midnight stay for evaluation of acute pancreatitis CODE STATUS: Full Code Discussed with: Patient Anticipated discharge date: 04/[address]: Home Past Medical History Past Medical History: Asthma, Cancer, Hypertension, Skin Disorder Additional Past Medical History / Comment(s): HX OF PROSTATE CANCER., SKIN TX BY DERMATOLIGIST History of Any Multi-Drug Resistant Organisms: None Reported Past Surgical History: Prostate Surgery Past Anesthesia/Blood Transfusion Reactions: No Reported Reaction Past Psychological History: Depression Smoking Status: Never smoker Past Alcohol Use History: Daily Past Drug Use History: None Reported - Past Family History Mother Family Medical History: No Reported History Medications and Allergies Home Medications Medication Instructions Recorded Confirmed Type Atorvastatin [Lipitor] 40 mg PO HS 01/23/16 04/05/21 History Verapamil HCl [Verelan] 360 mg PO DAILY 01/23/16 04/05/21 History Albuterol Sulfate [Ventolin HFA] 2 puff INHALATION RT-Q6H PRN 04/05/21 04/05/21 History Azithromycin [Zithromax Tri-Edin (3 See Taper PO DAILY 04/05/21 04/05/21 History tabs)] Fluticasone/Umeclidin/Vilanter 1 puff INHALATION RT-DAILY 04/05/21 04/05/21 History [Trelegy Ellipta 200-62.5-25] predniSONE 10 mg PO DIRECTED 04/05/21 04/05/21 History Allergies Allergy/AdvReac Type Severity Reaction Status Date / Time No Known Allergies Allergy Verified 04/05/21 18:39 Physical Exam Vitals: Vital Signs Temp Pulse Resp BP Pulse Ox 04/05/21 21:00 191/113 04/05/21 18:50 83 16 155/87 95 04/05/21 17:48 97.8 F 105 H 20 174/89 95 Intake and Output 04/05/21 04/05/21 04/06/21 14:59 22:59 06:59 Other: Weight 122.47 kg Results CBC & Chem 7: 04/05/21 18:29 04/05/21 18:29 Labs: Abnormal Lab Results - Last 24 Hours (Table) 04/05/21 04/05/21 04/05/21 Range/Units 18:29 18:29 18:29 WBC 16.7 H (3.8-10.6) k/uL MCV 107.0 H (80.0-100.0) fL MCH 35.8 H (25.0-35.0) pg Neutrophils # 15.7 H (1.3-7.7) k/uL Lymphocytes # 0.4 L (1.0-4.8) k/uL APTT 21.2 L (22.0-30.0) sec Sodium 136 L (137-145) mmol/L Glucose 255 H (74-99) mg/dL Plasma Lactic Acid Hector (0.7-2.0) mmol/L Amylase 1480 H* (30-110) U/L Lipase 03642 H (23-300) U/L 04/05/21 04/05/21 Range/Units 18:29 21:21 WBC (3.8-10.6) k/uL MCV (80.0-100.0) fL MCH (25.0-35.0) pg Neutrophils # (1.3-7.7) k/uL Lymphocytes # (1.0-4.8) k/uL APTT (22.0-30.0) sec Sodium (137-145) mmol/L Glucose (74-99) mg/dL Plasma Lactic Acid Hector 2.5 H* 2.5 H* (0.7-2.0) mmol/L Amylase (30-110) U/L Lipase (23-300) U/L
[2021-04-06] MEDS ORDERED: THIAMINE 100 MG/ML 2 ML VIAL IM STA (00:47)
[2021-04-06] MEDS ORDERED: SODIUM CHLORIDE 0.9% 1,000 ML IV ONE ×2 (00:47→00:53)
[2021-04-06] MEDS ORDERED: LORazepam 2 MG/ML INJ IV PRN ×3 (00:47)
[2021-04-06 01:24] LABS: Appearance,Urine Clear (Clear); Bilirubin,Urine Negative (Negative); Blood,Urine Negative (Negative); Color,Urine Yellow; Glucose,Urine (UA) Trace (Negative); Ketones,Urine Negative (Negative); Leukocyte Esterase,Urine Negative (Negative); Nitrite,Urine Negative (Negative); PH, Urine 7.5 (5.0-8.0); Protein,Urine Trace (Negative); Urobilinogen,Urine <2.0 mg/dL (<2.0)
[2021-04-06] MEDS: IPRATROPIUM 0.5 MG/2.5 ML NEBU INHALATION SCH ×4 (07:17→19:43)
[2021-04-06] MEDS: SYMBICORT 80-4.5 MCG INHALER INHALATION SCH ×2 (07:17→19:43)
[2021-04-06] MEDS: VERAPAMIL SR 180 MG TABLET.ER PO SCH (08:01)
[2021-04-06] MEDS: HEPARIN SODIUM,PORCINE/PF 5,000 UNIT/0.5 ML SYRINGE SQ SCH ×3 (08:01→23:37)
[2021-04-06] MEDS: THIAMINE 100 MG TAB PO SCH ×2 (08:01→16:38)
--- NOTE | 2021-04-06 09:07 | P.PN ---
Subjective Progress Note Date: 04/06/21 No new complaints, reports ongoing abd pain this morning, but appears more comfortable than reported pain. Reports appetite, and would like a diet this AM. Objective - Vital Signs Vital signs: Vital Signs Temp 98.9 F 04/06/21 06:04 Pulse 87 04/06/21 08:19 Resp 18 04/06/21 06:04 BP 161/82 04/06/21 08:18 Pulse Ox 97 04/06/21 06:04 Intake & Output 04/05/21 04/06/21 04/06/21 18:59 06:59 18:59 Weight 122.47 kg 122.47 kg - Exam Gen: awake, alert HEENT: normocephalic, atraumatic, good hearing acuity, moist mucous membranes Resp: good air exchange, breathing comfortably with no accessory muscle use CVS: good distal perfusion x 4, GI: Tenderness to palpation in the epigastrium : no SPT, no CVAT, zelaya catheter not present MSK: no pitting edema, no clubbing Neuro: non-focal, moving all extremities Psych: cooperative, euthymic mood - Labs CBC & Chem 7: 04/05/21 18:29 04/05/21 18:29 Labs: Abnormal Lab Results - Last 24 Hours (Table) 04/05/21 04/05/21 04/05/21 Range/Units 18:29 18:29 18:29 WBC 16.7 H (3.8-10.6) k/uL MCV 107.0 H (80.0-100.0) fL MCH 35.8 H (25.0-35.0) pg Neutrophils # 15.7 H (1.3-7.7) k/uL Lymphocytes # 0.4 L (1.0-4.8) k/uL APTT 21.2 L (22.0-30.0) sec Sodium 136 L (137-145) mmol/L Glucose 255 H (74-99) mg/dL Plasma Lactic Acid Hector (0.7-2.0) mmol/L Amylase 1480 H* (30-110) U/L Lipase 15053 H (23-300) U/L Ur Specific Stephen (1.001-1.035) Urine Protein (Negative) Urine Glucose (UA) (Negative) 04/05/21 04/05/21 04/06/21 Range/Units 18:29 21:21 00:17 WBC (3.8-10.6) k/uL MCV (80.0-100.0) fL MCH (25.0-35.0) pg Neutrophils # (1.3-7.7) k/uL Lymphocytes # (1.0-4.8) k/uL APTT (22.0-30.0) sec Sodium (137-145) mmol/L Glucose (74-99) mg/dL Plasma Lactic Acid Hector 2.5 H* 2.5 H* 3.7 H* (0.7-2.0) mmol/L Amylase (30-110) U/L Lipase (23-300) U/L Ur Specific Stephen (1.001-1.035) Urine Protein (Negative) Urine Glucose (UA) (Negative) 04/06/21 04/06/21 Range/Units 00:31 03:14 WBC (3.8-10.6) k/uL MCV (80.0-100.0) fL MCH (25.0-35.0) pg Neutrophils # (1.3-7.7) k/uL Lymphocytes # (1.0-4.8) k/uL APTT (22.0-30.0) sec Sodium (137-145) mmol/L Glucose (74-99) mg/dL Plasma Lactic Acid Hector 2.8 H* (0.7-2.0) mmol/L Amylase (30-110) U/L Lipase (23-300) U/L Ur Specific Stephen 1.050 H (1.001-1.035) Urine Protein Trace H (Negative) Urine Glucose (UA) Trace H (Negative) Assessment and Plan Assessment: Acute pancreatitis in active alcoholic Alcohol Abuse -Continue IV fluids -Nothing by mouth --> CLD on 04/06 -Pain control -Antiemetics -Strongly advised on importance of cessation from alcohol use -CIWA protocol + Ativan PRN Macrocytosis -Check anemia panel - B12, Folate Hyperglycemia -Check A1c Chronic conditions: Asthma, hyperlipidemia, hypertension -Continue with home meds DVT prophylaxis with heparin TID CODE STATUS: Full Code Anticipated discharge date: 04/[address]: Home
[2021-04-06 09:57] LABS: HCT 45.3 % (39.6-50.0); HGB 14.6 g/dL (13.0-17.0); MCH 34.4 pg (27.0-32.0); MCHC 32.2 g/dL (32.0-37.0); MCV 106.6 fL (80.0-97.0); Mean Platelet Volume 9.1 fL (9.5-12.2); NRBC Per 100 WBC 0 /100 WBCS (0.0-0.0); Platelet Count 270 X 10*3/uL (140-440); RBC 4.25 X 10*6/uL (4.40-5.60); RDW 13.7 % (11.5-14.5); WBC 17.54 X 10*3/uL (4.50-10.00)
[2021-04-06 10:09] LABS: African American GFR (CKD) 107.1 (60.0-200.0); Albumin 3.7 g/dL (3.8-4.9); Albumin/Globulin Ratio 1.68 (1.60-3.17); Anion Gap 14.3 mmol/L (10.00-18.00); BUN/Creat Ratio 11.63 Ratio (12.00-20.00); Blood Urea Nitrogen 9.3 mg/dL (9.0-27.0); Calcium 8.5 mg/dL (8.7-10.3); Carbon Dioxide 23.7 mmol/L (20.0-27.5); Globulin 2.2 g/dL (1.6-3.3); Non-African American GFR(CKD) 92.4 (60.0-200.0); Potassium 3.7 mmol/L (3.5-5.5); Total Bilirubin 0.5 mg/dL (0.30-1.20); Total Protein 5.9 g/dL (6.2-8.2)
[2021-04-06] MEDS: SODIUM CHLORIDE 0.9% 1,000 ML IV SCH ×3 (11:22→15:31)
--- NOTE | 2021-04-06 16:10 | P.CONS ---
History of Present Illness - Reason for Consult Consult date: 04/06/21 Pancreatitis Requesting physician: Burak Estrada - Chief Complaint Abdominal pain - History of Present Illness This is 65-year-old male who presented to the emergency department yesterday with complaints of severe abdominal pain. Patient states his pain was 8-10 out of 10. He denies any previous history of renal pain to this extent. He states it started out that he was belching anybody had some acid indigestion. Pain progressively got worse. He denies any association with nausea or vomiting. He presented to the emergency department and underwent some lab work that showed he had elevated lipase and amylase. A admitting labs show WBC 16.7 hemoglobin 15.9 hematocrit 47 platelet count 326,000 and INR 0.9 lactic acid was 2.5 total bilirubin 0.8 AST 48 ALT 34 alkaline phosphatase 76. Amylase was 1480, lipase 14,561. He also underwent a CT of the abdomen and pelvis that showed retroperitoneal fat stranding and fluid consistent with acute pancreatitis. Fatty infiltration of the liver. He denies any previous history of pancreatitis. He admits to heavy alcohol use and drinks a half gallon every few days. States he's been drinking since age of 16. Still rating pain 8/10. No nausea or vomiting. Tolerating clear liquid diet. Review of Systems REVIEW OF SYSTEMS: CARDIOPULMONARY: No chest pain or shortness of breath. Gastrointestinal: Epigastric and periumbilical pain. No nausea or vomiting. No hematemesis, coffee-ground emesis. No rectal bleeding, or melena. Last bowel movement was on Tuesday. GENITOURINARY: No dysuria or hematuria. MUSCULOSKELETAL: Reports normal range of motion., Joint pain. SKIN: No rashes. No jaundice. ENDOCRINE: No chills, fevers. No excessive weight gain or loss. No polydipsia or polyuria. PSYCHIATRIC: Unremarkable. NEUROLOGY: No change in mental status. Denies dizziness, headache. ENT: Vision unremarkable. CONSTITUTIONAL: No recent weight loss. No fever, chills, night sweats. Past Medical History Past Medical History: Cancer, COPD, Hypertension, Skin Disorder Additional Past Medical History / Comment(s): HX OF PROSTATE CANCER., SKIN TX BY DERMATOLIGIST History of Any Multi-Drug Resistant Organisms: None Reported Past Surgical History: Prostate Surgery Past Anesthesia/Blood Transfusion Reactions: No Reported Reaction Smoking Status: Never smoker - Past Family History Mother Family Medical History: No Reported History Medications and Allergies Home Medications Medication Instructions Recorded Confirmed Type Atorvastatin [Lipitor] 40 mg PO HS 01/23/16 04/05/21 History Verapamil HCl [Verelan] 360 mg PO DAILY 01/23/16 04/05/21 History Albuterol Sulfate [Ventolin HFA] 2 puff INHALATION RT-Q6H PRN 04/05/21 04/05/21 History Azithromycin [Zithromax Tri-Edin (3 See Taper PO DAILY 04/05/21 04/05/21 History tabs)] Fluticasone/Umeclidin/Vilanter 1 puff INHALATION RT-DAILY 04/05/21 04/05/21 History [Trelegy Ellipta 200-62.5-25] predniSONE 10 mg PO DIRECTED 04/05/21 04/05/21 History Allergies Allergy/AdvReac Type Severity Reaction Status Date / Time No Known Allergies Allergy Verified 04/05/21 18:39 Physical Exam Vitals: Vital Signs Temp Pulse Pulse Resp BP BP Pulse Ox 04/06/21 08:19 87 04/06/21 08:18 161/82 04/06/21 07:29 86 04/06/21 07:18 90 04/06/21 06:04 98.9 F 108 H 18 136/95 97 04/06/21 05:32 78 16 141/73 96 04/06/21 01:19 84 18 134/66 96 04/06/21 00:00 89 18 133/70 96 04/05/21 21:00 191/113 04/05/21 18:50 83 16 155/87 95 04/05/21 17:48 97.8 F 105 H 20 174/89 95 Intake and Output 04/05/21 04/06/21 04/06/21 22:59 06:59 14:59 Other: Weight 122.47 kg 122.47 kg General appearance: The patient is alert, oriented, appears in no acute distress. HET: Head is normocephalic and atraumatic. Conjunctiva pink. Sclera anicteric. Neck: Supple without lymphadenopathy. Trachea midline. Heart: S1 S2. Regular rate and rhythm. Lungs: Clear to auscultation. Abdomen: Soft, epigastric and mid abdominal tenderness, nondistended with bowel sounds. No guarding or rigidity. Skin: No rashes. No jaundice. Extremities: Normal skin color and turgor. No pedal edema. Neurological: No focal deficits. Alert and oriented x3. Results CBC & Chem 7: 04/06/21 03:14 04/06/21 03:14 Labs: Abnormal Lab Results - Last 24 Hours (Table) 04/05/21 04/05/21 04/05/21 Range/Units 18:29 18:29 18:29 WBC 16.7 H (3.8-10.6) k/uL RBC (4.40-5.60) X 10*6/uL MCV 107.0 H (80.0-100.0) fL MCH 35.8 H (25.0-35.0) pg MPV (9.5-12.2) fL Neutrophils # 15.7 H (1.3-7.7) k/uL Lymphocytes # 0.4 L (1.0-4.8) k/uL APTT 21.2 L (22.0-30.0) sec Sodium 136 L (137-145) mmol/L BUN/Creatinine Ratio (12.00-20.00) Ratio Glucose 255 H (74-99) mg/dL Plasma Lactic Acid Hector (0.7-2.0) mmol/L Calcium (8.7-10.3) mg/dL Total Protein (6.2-8.2) g/dL Albumin (3.8-4.9) g/dL Amylase 1480 H* (30-110) U/L Lipase 38168 H (23-300) U/L Vitamin B12 (200.0-944.0) pg/mL Ur Specific [place] (1.001-1.035) Urine Protein (Negative) Urine Glucose (UA) (Negative) 04/05/21 04/05/21 04/06/21 Range/Units 18:29 21:21 00:17 WBC (3.8-10.6) k/uL RBC (4.40-5.60) X 10*6/uL MCV (80.0-100.0) fL MCH (25.0-35.0) pg MPV (9.5-12.2) fL Neutrophils # (1.3-7.7) k/uL Lymphocytes # (1.0-4.8) k/uL APTT (22.0-30.0) sec Sodium (137-145) mmol/L BUN/Creatinine Ratio (12.00-20.00) Ratio Glucose (74-99) mg/dL Plasma Lactic Acid Hector 2.5 H* 2.5 H* 3.7 H* (0.7-2.0) mmol/L Calcium (8.7-10.3) mg/dL Total Protein (6.2-8.2) g/dL Albumin (3.8-4.9) g/dL Amylase (30-110) U/L Lipase (23-300) U/L Vitamin B12 (200.0-944.0) pg/mL Ur Specific [place] (1.001-1.035) Urine Protein (Negative) Urine Glucose (UA) (Negative) 04/06/21 04/06/21 04/06/21 Range/Units 00:31 01:30 03:14 WBC 17.54 H (3.8-10.6) k/uL RBC 4.25 L (4.40-5.60) X 10*6/uL MCV 106.6 H (80.0-100.0) fL MCH 34.4 H (25.0-35.0) pg MPV 9.1 L (9.5-12.2) fL Neutrophils # (1.3-7.7) k/uL Lymphocytes # (1.0-4.8) k/uL APTT (22.0-30.0) sec Sodium (137-145) mmol/L BUN/Creatinine Ratio (12.00-20.00) Ratio Glucose (74-99) mg/dL Plasma Lactic Acid Hector (0.7-2.0) mmol/L Calcium (8.7-10.3) mg/dL Total Protein (6.2-8.2) g/dL Albumin (3.8-4.9) g/dL Amylase (30-110) U/L Lipase (23-300) U/L Vitamin B12 199.0 L (200.0-944.0) pg/mL Ur Specific [place] 1.050 H (1.001-1.035) Urine Protein Trace H (Negative) Urine Glucose (UA) Trace H (Negative) 04/06/21 04/06/21 Range/Units 03:14 03:14 WBC (3.8-10.6) k/uL RBC (4.40-5.60) X 10*6/uL MCV (80.0-100.0) fL MCH (25.0-35.0) pg MPV (9.5-12.2) fL Neutrophils # (1.3-7.7) k/uL Lymphocytes # (1.0-4.8) k/uL APTT (22.0-30.0) sec Sodium (137-145) mmol/L BUN/Creatinine Ratio 11.63 L (12.00-20.00) Ratio Glucose 173 H (74-99) mg/dL Plasma Lactic Acid Hector 2.8 H* (0.7-2.0) mmol/L Calcium 8.5 L (8.7-10.3) mg/dL Total Protein 5.9 L (6.2-8.2) g/dL Albumin 3.7 L (3.8-4.9) g/dL Amylase (30-110) U/L Lipase (23-300) U/L Vitamin B12 (200.0-944.0) pg/mL Ur Specific [place] (1.001-1.035) Urine Protein (Negative) Urine Glucose (UA) (Negative) Comments: CT of the abdomen and pelvis that showed retroperitoneal fat stranding and fluid consistent with acute pancreatitis. Fatty infiltration of the liver. Assessment and Plan (1) Acute alcoholic pancreatitis Narrative/Plan: 65-year-old male with long-standing history of alcohol abuse. States that he drinks half gallon every few days. States he has been drinking since the age of 16. He has had no prior history of pancreatitis and no prior history of liver disease. He presented to the emergency department with acute abdominal pain. No associated nausea or vomiting. He denies any recent new medications. He had labs that were consistent with pancreatitis, followed by a CT of the abdomen and pelvis that shows acute uncomplicated pancreatitis and hepatomegaly. Pancreatitis is likely related to alcohol abuse. This was discussed with the patient for recommendation of alcohol abstinence. Continue heavy IV hydration, pain medication and patient may continue small amounts of clear liquid diet. Current Visit: Yes Status: Acute Code(s): K85.20 - ALCOHOL INDUCED ACUTE PANCREATITIS WITHOUT NECROSIS OR INFCT SNOMED Code(s): 231988408 Plan: 1. Continue symptomatic and supportive care 2. Continue IV hydration 3. May have small amounts of clear liquid diet 4. Repeat amylase and lipase today, as well as tomorrow 5. Alcohol abstinence 6. Continue pain medication per primary medicine team Thank you for this consultation, we will continue to follow. Dr. Kyle Leblanc I agree with the dictator's note, documented as a scribe by Galilea Calhoun.
[2021-04-06] MEDS ORDERED: ATORVASTATIN 40 MG TAB PO SCH (21:00)
[2021-04-06 23:25] LABS: Lipase 2156 U/L (14-60)
[2021-04-07 00:05] LABS: Amylase 739 U/L (23-121)
[2021-04-07 02:30] VITALS: BP 159/88; RESP 22; TEMP 98.5
[2021-04-07] MEDS: SODIUM CHLORIDE 0.9% 1,000 ML IV SCH ×2 (05:02→10:45)
[2021-04-07] MEDS ORDERED: PANTOPRAZOLE 40 MG TABLET PO SCH (07:30)
[2021-04-07] MEDS: IPRATROPIUM 0.5 MG/2.5 ML NEBU INHALATION SCH ×2 (08:51→11:34)
[2021-04-07] MEDS: SYMBICORT 80-4.5 MCG INHALER INHALATION SCH (08:51)
[2021-04-07 09:13] LABS: Basophils # (A) 0.04 X 10*3/uL (0.00-0.10); Basophils % (A) 0.3 %; Eosinophils # (A) 0.03 X 10*3/uL (0.04-0.35); Eosinophils % (A) 0.2 %; HCT 38.9 % (39.6-50.0); HGB 12.7 g/dL (13.0-17.0); Immature Grans, Automated 0.8 %; Lymphocytes # (A) 1.14 X 10*3/uL (0.90-5.00); Lymphocytes % (A) 7.1 %; MCH 34.2 pg (27.0-32.0); MCHC 32.6 g/dL (32.0-37.0); MCV 104.9 fL (80.0-97.0); Mean Platelet Volume 9.1 fL (9.5-12.2); Monocytes # (A) 0.69 X 10*3/uL (0.20-1.00); Monocytes % (A) 4.3 %; NRBC Per 100 WBC 0 /100 WBCS (0.0-0.0); Neutrophils # (A) 13.95 X 10*3/uL (1.80-7.70); Neutrophils % (A) 87.3 %; Platelet Count 218 X 10*3/uL (140-440); RBC 3.71 X 10*6/uL (4.40-5.60); RDW 13.5 % (11.5-14.5); WBC 15.97 X 10*3/uL (4.50-10.00)
[2021-04-07 09:22] LABS: Magnesium 1.8 mg/dL (1.5-2.4)
[2021-04-07 09:23] LABS: African American GFR (CKD) 107.1 (60.0-200.0); Albumin 3.1 g/dL (3.8-4.9); Albumin/Globulin Ratio 1.55 (1.60-3.17); Anion Gap 9.5 mmol/L (10.00-18.00); BUN/Creat Ratio 8.25 Ratio (12.00-20.00); Bilirubin, Conjugated 0.26 mg/dL (0.20-0.40); Bilirubin,Unconjugated 0.44 mg/dL (0.20-1.00); Blood Urea Nitrogen 6.6 mg/dL (9.0-27.0); Calcium 7.8 mg/dL (8.7-10.3); Carbon Dioxide 22.5 mmol/L (20.0-27.5); Non-African American GFR(CKD) 92.4 (60.0-200.0); Potassium 3.6 mmol/L (3.5-5.5); Total Bilirubin 0.7 mg/dL (0.30-1.20); Total Protein 5.1 g/dL (6.2-8.2)
[2021-04-07] MEDS: THIAMINE 100 MG TAB PO SCH (10:44)
[2021-04-07] MEDS: HEPARIN SODIUM,PORCINE/PF 5,000 UNIT/0.5 ML SYRINGE SQ SCH (10:44)
[2021-04-07] MEDS: VERAPAMIL SR 180 MG TABLET.ER PO SCH (10:44)
[2021-04-07 11:36] VITALS: PULSE 82
--- NOTE | 2021-04-07 12:33 | P.PN ---
Subjective Progress Note Date: 04/07/21 Principal diagnosis: Pancreatitis Patient was seen and examined sitting up. He reports that he has no abdominal pain. He's had no nausea or vomiting. He has been afebrile. Pancreatic enzymes are trending down. The liver enzymes remain normal. He's been tolerating a clear liquid diet. Objective - Vital Signs Vital signs: Vital Signs Temp 98.5 F 04/07/21 02:00 Pulse 80 04/07/21 09:00 Resp 22 04/07/21 02:00 BP 159/88 04/07/21 02:00 Pulse Ox 95 04/07/21 02:00 Intake & Output 04/06/21 04/07/21 04/07/21 18:59 06:59 18:59 Intake Total 1560 Balance 1560 Weight 122.47 kg Intake: Intake, IV Titration 1560 Amount Sodium Chloride 0.9% 1, 1560 000 ml @ 130 mls/hr IV . [id number] [facility] Rx#:[id number] Other: Voiding Method Toilet # Voids 3 6 - Exam General appearance: The patient is alert, oriented, appears in no acute distress. HET: Head is normocephalic and atraumatic. Conjunctiva pink. Sclera anicteric. Neck: Supple without lymphadenopathy. Abdomen: Soft, nontender, nondistended with bowel sounds. No guarding or rigidity. Extremities: Normal skin color and turgor. No pedal edema Skin: No rashes, no jaundice Neurological: No focal deficits. Alert and oriented -3. - Labs CBC & Chem 7: 04/07/21 05:35 04/07/21 05:35 Labs: Abnormal Lab Results - Last 24 Hours (Table) 04/06/21 04/07/21 04/07/21 Range/Units 03:14 05:35 05:35 WBC 15.97 H (4.50-10.00) X 10*3/uL RBC 3.71 L (4.40-5.60) X 10*6/uL Hgb 12.7 L (13.0-17.0) g/dL Hct 38.9 L (39.6-50.0) % MCV 104.9 H (80.0-97.0) fL MCH 34.2 H (27.0-32.0) pg MPV 9.1 L (9.5-12.2) fL Immature Gran # 0.12 H (0.00-0.04) X 10*3/uL Neutrophils # 13.95 H (1.80-7.70) X 10*3/uL Eosinophils # 0.03 L (0.04-0.35) X 10*3/uL Sodium 133 L (135-145) mmol/L Anion Gap 9.50 L (10.00-18.00) mmol/L BUN 6.6 L (9.0-27.0) mg/dL BUN/Creatinine Ratio 8.25 L (12.00-20.00) Ratio Glucose 131 H (70-110) mg/dL Calcium 7.8 L (8.7-10.3) mg/dL AST 12 L (14-35) U/L Total Protein 5.1 L (6.2-8.2) g/dL Albumin 3.1 L (3.8-4.9) g/dL Albumin/Globulin Ratio 1.55 L (1.60-3.17) g/dL Amylase 739 H* (23-121) U/L Lipase 2156 H 123 H (14-60) U/L Microbiology - Last 24 Hours (Table) 04/05/21 21:21 Blood Culture - Preliminary Blood No Growth after 24 hours 04/05/21 21:21 Blood Culture - Preliminary Blood No Growth after 24 hours Assessment and Plan (1) Acute alcoholic pancreatitis Narrative/Plan: 65-year-old male with long-standing history of alcohol abuse. States that he drinks half gallon every few days. States he has been drinking since the age of 16. He has had no prior history of pancreatitis and no prior history of liver disease. He presented to the emergency department with acute abdominal pain. No associated nausea or vomiting. He denies any recent new medications. He had labs that were consistent with pancreatitis, followed by a CT of the abdomen and pelvis that shows acute uncomplicated pancreatitis and hepatomegaly. Pancreatitis is likely related to alcohol abuse. This was discussed with the patient for recommendation of alcohol abstinence. Continue heavy IV hydration, pain medication and patient may continue small amounts of clear liquid diet. Abdominal pain completely resolved. Pancreatic enzymes trending down. Patient tolerating clear liquid diet with advancement to regular diet. Current Visit: Yes Status: Acute Code(s): K85.20 - ALCOHOL INDUCED ACUTE PANCREATITIS WITHOUT NECROSIS OR INFCT SNOMED Code(s): 610232401 Plan: 1. Continue symptomatic and supportive care 2. Advance diet as tolerated 3. Alcohol abstinence 4. If patient tolerates lunch he may be cleared for discharge from gastroenterology Dr. Kyle Leblanc I agree with the dictator's note, documented as a scribe by Galilea Calhoun.
--- NOTE | 2021-04-07 14:16 | P.DS ---
Providers Date of admission: 04/05/21 20:13 Expected date of discharge: 04/07/21 Attending physician: Marisa Rodriguez MD Consults: 04/05/21 20:22 Consult Physician Routine Consulting Provider: Roslyn Leblanc Consult Reason/Comments: Pancreatitis Do you want consulting provider notified?: Yes Primary care physician: Gisela Burks MD Hospital Course: 65-year-old male with a PMH of alcohol abuse, asthma, and hyperlipidemia who presents to the emergency room with complaints of abdominal pain. The patient reports that he woke up this morning with 8 out of 10 epigastric abdominal pain with nausea and vomiting. No blood or bile in the vomitus. Reports heavy alcohol use for the past several decades and currently drinks a fifth of vodka daily. Denied any prior history of such abdominal pain. Pain radiates throughout the abdomen with no alleviating or exacerbating features. Denied fever, diarrhea, cough, chest pain, shortness of breath, urinary complaints. Patient denied history of alcohol withdrawal and delirium tremens. Denied ever being hospitalized for his drinking. CT abdomen and pelvis was remarkable for acute pancreatitis with fatty infiltration of the liver with EKG showing sinus rhythm at 89 bpm. Laboratory evaluation was remarkable for WBC count of 16.7, lactic acid 2.5, lipase 14,561, MCV 107, and glucose 255. Patient was subsequently admitted for further evaluation and management. He was started on IV fluids, was kept nothing by mouth. Lipase trended down gradually to normal on the day of discharge. Symptoms improved as well. He is currently without any abdominal pain. He is doing well, was advised to refrain from alcohol drinking. He was seen by gastroenterology, no further recommendations are made. He will be discharged home in stable condition. Plan - Discharge Summary New Discharge Prescriptions: Continue Atorvastatin [Lipitor] 40 mg PO HS Verapamil HCl [Verelan] 360 mg PO DAILY Albuterol Sulfate [Ventolin HFA] 2 puff INHALATION RT-Q6H PRN PRN Reason: Shortness Of Breath Fluticasone/Umeclidin/Vilanter [Trelegy Ellipta 200-62.5-25] 1 puff INHALATION RT-DAILY predniSONE 10 mg PO DIRECTED Discontinued Azithromycin [Zithromax Tri-Edin (3 tabs)] See Taper PO DAILY Discharge Medication List Atorvastatin [Lipitor] 40 mg PO HS 01/23/16 [History] Verapamil HCl [Verelan] 360 mg PO DAILY 01/23/16 [History] Albuterol Sulfate [Ventolin HFA] 2 puff INHALATION RT-Q6H PRN 04/05/21 [History] Fluticasone/Umeclidin/Vilanter [Trelegy Ellipta 200-62.5-25] 1 puff INHALATION RT-DAILY 04/05/21 [History] predniSONE 10 mg PO DIRECTED 04/05/21 [History] Follow up Appointment(s)/Referral(s): Roslyn Leblanc MD [STAFF PHYSICIAN] - 1 Week
== END 2021-04-07 14:20 | disposition home or self-care (01) | DRG 439 ==
LOC: EC 17:47 → 4SSUR 20:13
PROVIDERS: ADMIT Internal Medicine; ATTEND Internal Medicine
PROC: HZ2ZZZZ Detoxification Services for Substance Abuse Treatment (ICD-10-PCS; principal; 2021-04-05)
DX: K85.20 Alcohol induced acute pancreatitis without necrosis or infection (principal); E87.2 Acidosis; F10.10 Alcohol abuse, uncomplicated; J44.9 Chronic obstructive pulmonary disease, unspecified; R73.9 Hyperglycemia, unspecified; D75.89 Other specified diseases of blood and blood-forming organs; J45.909 Unspecified asthma, uncomplicated; E78.5 Hyperlipidemia, unspecified; F32.A Depression, unspecified; R16.0 Hepatomegaly, not elsewhere classified; I10 Essential (primary) hypertension; K76.0 Fatty (change of) liver, not elsewhere classified; Z79.899 Other long term (current) drug therapy; Z85.46 Personal history of malignant neoplasm of prostate; Z71.41 Alcohol abuse counseling and surveillance of alcoholic
CPT/HCPCS: 36415; 74018; 74177; 80048; 80053; 80076; 81003; 82150; 82607; 82747; 83036; 83605; 83690; 83735; 84484; 85025; 85027; 85610; 85730; 87040; 93005; 94640; 96361; 96374; 99285